=== PATIENT | female | born 1995 | race Hispanic/Latino ===

== ENCOUNTER 2018-07-31 21:13 | Emergency (ER) | payer BC ==
[~2018-07-31] VITALS: Ht 162.6 cm; Wt 90.7 kg
[2018-07-31] MEDS ORDERED: HYDROCODONE/APAP 5MG-325MG TAB PO ONE (21:30)
[2018-07-31] MEDS ORDERED: CYCLOBENZAPRINE HCL 10 MG TAB PO ONE (21:30)
== END 2018-07-31 22:00 | disposition home or self-care (01) ==
LOC: FSED 21:13
DX: G43.009 Migraine without aura, not intractable, without status migrainosus (principal)
CPT/HCPCS: 99283